=== PATIENT | female | born 1960 | race Caucasian/White ===

== ENCOUNTER 2020-01-14 07:00 | Day surgery (SDC) | payer OTHER ==
[2020-01-14] MEDS ORDERED: fentaNYL 100 MCG/2 ML SDV ONE (07:34)
[2020-01-14] MEDS ORDERED: Midazolam 1 MG/ML 2 ML SDV ONE (07:34)
[2020-01-14] MEDS ORDERED: Propofol 200 MG/20 ML SDV ONE (07:34)
[2020-01-14] MEDS ORDERED: Lactated Ringers 1,000 ML IV SCH ×2 (07:55→13:45)
--- NOTE | 2020-01-14 11:30 | OR ---
DATE OF PROCEDURE: 01/14/2020 SURGEON: Jonh Gunter MD PROCEDURE: Colonoscopy. FINDINGS: Normal colonoscopy. COMPLICATIONS: None. 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 ANESTHESIA: MAC. PREOPERATIVE DIAGNOSIS: Screening colonoscopy. POSTOPERATIVE DIAGNOSIS: Screening colonoscopy. RISKS: Risks, benefits, alternatives, and limitations including, but not limited to infection, bleeding, false positives and false negatives were explained to the patient who wished to proceed. PROCEDURE IN DETAIL: The patient was placed in left lateral decubitus position. Digital rectal exam was performed without abnormality. Scope was introduced and advanced atraumatically to the ileocecal valve. A photo was taken of this. Scope was brought back through the ascending, transverse, descending colon, and retroflexed. No evidence of old or new blood. No masses. No polyps. No diverticulosis. No colitis. No abnormalities on retroflexion. Greater than 10 minutes was spent removing the scope. The patient tolerated the procedure well. Jonh Gunter MD /[id number]
== END 2020-01-14 10:50 | disposition home or self-care (01) ==
LOC: JP.SDS 07:00
PROVIDERS: ATTEND Surgery
DX: Z12.11 Encounter for screening for malignant neoplasm of colon (principal); Z88.1 Allergy status to other antibiotic agents
CPT/HCPCS: 45378; J2250; J2704; J3010